=== PATIENT | female | born 1995 ===

== ENCOUNTER 2016-06-08 08:20 | Emergency (ER) | payer OTHER ==
--- NOTE | 2016-06-08 11:34 | ED CLINICAL REPORT ---
Clinical Report - Physicians/Mid Levels [facility] [address] [place] [address] 06/08/2016 8:21 Patient: PETE MEREDITH Time Seen: 09:11. Arrived- By private vehicle. Historian- patient. HISTORY OF PRESENT ILLNESS Chief Complaint: VOMITING. This started today and is still present. It was abrupt in onset and has been intermittent. No recent travel. She has had nausea and vomiting. The vomiting has occurred numerous times and has been blood-tinged. She has had loose stools. No bloody diarrhea. No black stools, bloody stools, abdominal pain or constipation. Has not recently been camping or on antibiotics. She has had contact with a sick spouse and child. The illness is described as severe. REVIEW OF SYSTEMS The patient has had a sore throat, chills and palpitations and experienced sweats. No fever, calf pain, chest pain, cough or difficulty breathing. No pedal edema, abdominal pain, constipation or urinary problems. All systems otherwise negative, except as recorded above. PAST HISTORY Problems: Anemia. Pyelonephritis. Medications: None. Allergies: No Known Drug Allergy. SOCIAL HISTORY Never smoker. No alcohol use or drug use. FAMILY HISTORY Her and child have similar symptoms. ADDITIONAL NOTES The nursing notes have been reviewed. PHYSICAL EXAM Vital Signs: 06/08/2016 08:28 BP: 130/90. HR: 115. RR: 18. O2 saturation: 99%. Temp: 98.7 F. Pain level now: 0/10. Have been reviewed. Appearance: Alert. Eyes: Pupils equal, round and reactive to light. ENT: Pharynx normal. Neck: Neck supple. CVS: Normal heart rate and rhythm. Heart sounds normal. Respiratory: No respiratory distress. Breath sounds normal. Abdomen: Soft and nontender. Abnormal bowel sounds: hyperactive. No organomegaly. No mass. Back: Normal inspection. Skin: Skin warm and dry. Normal skin color. Normal skin turgor. Extremities: Extremities exhibit normal ROM. No lower extremity edema. LABS, X-RAYS, AND EKG Laboratory Tests: UA-Culture if indicated: (KALYANI: 06/08/2016 10:15) ( [facility] 06/08/2016 10:29) Final results Test Result Flag Units (Reference) URINE COLOR YELLOW URINE APPEARANCE CLEAR URINE GLUCOSE NEGATIVE (NEGATIVE) URINE BILIRUBIN NEGATIVE (NEGATIVE) URINE KETONE 1+ (NEGATIVE) URINE SPECIFIC GRAVITY 1.010 (1.010-1.030) URINE PH 7.5 (5.0-8.0) URINE PROTEIN NEGATIVE (NEGATIVE) URINE UROBILINOGEN 0.2 EU/dL (0.2-1.0) URINE NITRITE NEGATIVE (NEGATIVE) URINE BLOOD TRACE-LYSED (NEGATIVE) URINE LEUK ESTERASE NEGATIVE (NEGATIVE) URINE RBC 0-1 rbc/hpf (0-1) URINE WBC NONE SEEN wbc/hpf (0-1) URINE EPITHELIAL CELLS 0-1 EPI/hpf (0-5) URINE BACTERIA NONE SEEN (NONE SEEN) URINE COMMENT CULT NOT INDICATED URINE CULTURES ARE SET-UP BASED ON THE FOLLOWING CRITERIA:POSITIVE NITRITEPOSITIVE LEUKOCYTE ESTERASEGREATER THAN 10 WHITE BLOOD CELLSMODERATE (2+) OR GREATER BACTERIA Urine: (KALYANI: 06/08/2016 10:15) ( [facility] 06/08/2016 10:22) Final results Test Result Flag Units (Reference) URINE NEGATIVE CBC w Diff: (KALYANI: 06/08/2016 08:40) ( [facility] 06/08/2016 09:09) Final results Test Result Flag Units (Reference) WHITE BLOOD COUNT 13.3 H K/uL (4.5-11.5) RED BLOOD COUNT 4.53 M/uL (4.00-5.20) HEMOGLOBIN 11.1 L gm/dL (12.0-16.0) HEMATOCRIT 35.0 L % (36.0-46.0) MEAN CELL VOLUME 77 L fL (80-100) MEAN CORPUSCULAR HGB 25 L pg (26-34) MEAN CORPUSCULAR HGB CONC 32 g/dL (31-37) RED CELL DISTRIBUTION WIDTH 17.3 H % (11.6-14.8) PLATELET COUNT 365 K/uL (150-400) NEUTROPHIL % 88.6 H % (50-75) LYMPH % 6.2 L % (25-40) MONO % 4.7 % (3-14) EOSINOPHIL % 0.3 % (0-4) BASOPHIL % 0.2 % (0-2) PT with INR: (KALYANI: 06/08/2016 08:40) ( MsgRcvd 06/08/2016 09:28) Final results Test Result Flag Units (Reference) INR 1.0 (0.8-1.2) Low Intensity Therapy: INR 1.5-2.0 PT range 18.5-23.1Mod.Intensity Therapy: INR 2.0-3.0 PT range 23.1-31.5High Intensity Therapy: INR 2.5-3.5 PT range 27.4-35.5High Intensity Therapy 2: INR 3.0-4.0 PT range 31.5-39.3 APTT 31 SECONDS (24-34) Urine Drug Screen: (KALYANI: 06/08/2016 10:15) ( WagRcvd 06/08/2016 10:36) Final results Test Result Flag Units (Reference) AMPHETAMINE/METHAMPHETAMINE NEGATIVE (NEGATIVE) BARBITURATE NEGATIVE (NEGATIVE) BENZODIAZEPINE NEGATIVE (NEGATIVE) CANNABINOID NEGATIVE (NEGATIVE) COCAINE NEGATIVE (NEGATIVE) ECSTASY NEGATIVE (NEGATIVE) METHADONE NEGATIVE (NEGATIVE) OPIATE NEGATIVE (NEGATIVE) The urine drug screen is a qualitative screening test fordrug overdose and abuse. All screen results should beconsidered as presumptive.Drugs screened for are as follows:BenzodiazepinesCocaineAmphetamines/MetamphetaminesTHC (Tetrahydrocannabinol)OpiatesBarbituratesEcstasyMethadonePositive results are unconfirmed. For confirmation, notifythe lab for the specimen to be sent to the reference lab.All confirmations must be performed by a differentmethodology.The ingestion of natural herbal and plant productscontaining Ephedra/Ephedra metabolites can produce in urineone or more substances capable of cross reacting withamphetamine/methamphetamine immunoassays. These testsprovide a preliminary result only. A more specificalternative chemical method must be used to obtain aconfirmed analytical result. CMP: (KALYANI: 06/08/2016 08:40) ( MsgRcvd 06/08/2016 09:36) Final results Test Result Flag Units (Reference) GLUCOSE 102 mg/dL (70-110) BUN 10 mg/dL (7-18) CREATININE 0.6 mg/dL (0.6-1.3) Estimated GFR >60 mL/min Estimated GFR- >60 mL/min Note: Persistent reduction over 3 months in eGFR<60 mL/min/1.73 m2 defines CKD. Patients with eGFR values>=60 mL/min/1.73 m2 may also have CKD if evidence ofpersistent proteinuria. Additional information may be foundat www.kidney.org. SODIUM 141 mmol/L (136-145) POTASSIUM 3.5 mmol/L (3.5-5.1) CHLORIDE 103 mmol/L (98-107) CARBON DIOXIDE 27 mmol/L (21-32) CALCIUM 8.7 mg/dL (8.5-10.1) TOTAL PROTEIN 8.1 g/dL (6.4-8.2) ALBUMIN 4.1 g/dL (3.3-5.0) BILIRUBIN, TOTAL 0.4 mg/dL (0.0-1.0) ALKALINE PHOSPHATASE 88 U/L (46-116) AST (SGOT) 17 U/L (15-37) ALT (SGPT) 18 U/L (12-78) LIPASE 236 U/L (73-393) AMYLASE 37 U/L (25-115) Culture, Strep Screen: (KALYANI: 06/08/2016 09:20) ( MsgRcvd 06/08/2016 09:39) Final results Test Result Flag Units (Reference) RAPID STREP SCREEN - THROAT DATE: 06/08/16 NEGATIVE SCREEN: RAPID STREP SCREEN NEGATIVE; CONFIRMATION TO FOLLOW . PROGRESS AND PROCEDURES Patient/family counseled. Old medical records reviewed. Disposition: Discharged. Condition: stable. CLINICAL IMPRESSION Acute gastroenteritis. INSTRUCTIONS Drink plenty of fluids. Warnings: Further evaluation is necessary. GENERAL WARNINGS: Return or contact your physician immediately if your condition worsens or changes unexpectedly, if not improving as expected, or if other problems arise. Prescription Medications: Zofran 4 mg: Take 1 orally every six hours as needed for nausea/vomiting. Dispense ten (10). No refills. Substitution is permissible. Understanding of the discharge instructions verbalized by patient. Follow-up with: [facility], , , [address] [place] [address], [facility], Follow up tomorrow. Call for an appointment. (Electronically signed by Dave Olmstead MD 06/08/2016 13:35)
--- NOTE | 2016-06-08 11:34 | ED ORDER SUMMARY ---
..... Patient: PETE MEREDITH OrderSheet [facility] VisitID: [id number] [place] [address] 20y, F Registration Date/Time: 06/08/2016 ORDER SHEET Weight: 67.1 kg (stated) Allergies: No Known Drug Allergy GENERAL ORDERS: CBC w Diff Urgent (09:00 06/08/2016 Garima MERCEDES) (Ack 9:00 LMuller) (9:01 LMuller) CMP Urgent (09:06/08/2016 Angela MERCEDES) (Ack 9:15 LMuller) (9:19 SReitz R.N.) UA-Culture if indicated Urgent (:06/08/2016 Angela MERCEDES) (Ack 9:15 LMuller) (10:16 RKsouravuga) Amylase Urgent (:06/08/2016 Angela MERCEDES) (Ack 9:15 LMuller) (9:19 SReitz R.N.) Lipase Urgent (09:06/08/2016 Angela MERCEDES) (Ack 9:15 LMuller) (9:19 SReitz R.N.) Urine Urgent (09:06/08/2016 Angela MERCEDES) (Ack 9:15 LMuller) (10:51 LMuller) PT with INR Urgent (09:06/08/2016 Angela MERCEDES) (Ack 9:15 LMuller) (9:19 SReitz R.N.) PTT Urgent (09:06/08/2016 Angela MERCEDES) (Ack 9:15 LMuller) (9:19 SReitz R.N.) Culture, Strep Screen Urgent (09:15 06/08/2016 Angela MERCEDES) (Ack 9:15 LMuller) (9:23 SReitz R.N.) Urine Drug Screen Urgent (09:37 06/08/2016 Angela MERCEDES) (Ack 9:46 SReitz R.N.) (10:16 RKaruga) MEDICATION ORDERS: IV FLUIDS: Zofran IV 4 mg (NOW) (08:59 06/08/2016 Garima MERCEDES) (Ack 9:09 SReitz R.N.) (Cancelled: Duplicate Order10:56 Milind Hinds) IV NS : initial bolus 1000 mL (1000 mL/hr), then none - (NOW) (09:00 06/08/2016 Garima MERCEDES) (Ack 9:09 Milind Bañuelos.N.) (Cancelled: Other9:18 Milind Bañuelos.Marixa) IV NS : initial bolus 500 mL (1000 mL/hr), then 125 mL/hr for 4h (NOW); Urgent (09:06/08/2016 Angela MERCEDES) (9:19 Milind R.NJake) Zofran IV 4 mg (NOW) (:13 06/08/2016 Angela MERCEDES) (9:19 Milind Hinds) ORDER SHEET NOTES: [Electronically signed by Jeanne Buchanan R.N. (12:31 06/08/2016)] [Electronically signed by Dave Olmstead MD (13:35 06/08/2016)] [Electronically locked/signed by Jeanne Buchanan R.N. (12:31 06/08/2016)]
--- NOTE | 2016-06-08 11:34 | ED CLINICAL REPORT ---
Clinical Report - Physicians/Mid Levels [facility] [address] [place] [address] 06/08/2016 8:21 Patient: PETE MEREDITH Time Seen: 09:11. Arrived- By private vehicle. Historian- patient. HISTORY OF PRESENT ILLNESS Chief Complaint: VOMITING. This started today and is still present. It was abrupt in onset and has been intermittent. No recent travel. She has had nausea and vomiting. The vomiting has occurred numerous times and has been blood-tinged. She has had loose stools. No bloody diarrhea. No black stools, bloody stools, abdominal pain or constipation. Has not recently been camping or on antibiotics. She has had contact with a sick spouse and child. The illness is described as severe. REVIEW OF SYSTEMS The patient has had a sore throat, chills and palpitations and experienced sweats. No fever, calf pain, chest pain, cough or difficulty breathing. No pedal edema, abdominal pain, constipation or urinary problems. All systems otherwise negative, except as recorded above. PAST HISTORY Problems: Anemia. Pyelonephritis. Medications: None. Allergies: No Known Drug Allergy. SOCIAL HISTORY Never smoker. No alcohol use or drug use. FAMILY HISTORY Her and child have similar symptoms. ADDITIONAL NOTES The nursing notes have been reviewed. PHYSICAL EXAM Vital Signs: 06/08/2016 08:28 BP: 130/90. HR: 115. RR: 18. O2 saturation: 99%. Temp: 98.7 F. Pain level now: 0/10. Have been reviewed. Appearance: Alert. Eyes: Pupils equal, round and reactive to light. ENT: Pharynx normal. Neck: Neck supple. CVS: Normal heart rate and rhythm. Heart sounds normal. Respiratory: No respiratory distress. Breath sounds normal. Abdomen: Soft and nontender. Abnormal bowel sounds: hyperactive. No organomegaly. No mass. Back: Normal inspection. Skin: Skin warm and dry. Normal skin color. Normal skin turgor. Extremities: Extremities exhibit normal ROM. No lower extremity edema. LABS, X-RAYS, AND EKG Laboratory Tests: UA-Culture if indicated: (KALYANI: 06/08/2016 10:15) ( [facility] 06/08/2016 10:29) Final results Test Result Flag Units (Reference) URINE COLOR YELLOW URINE APPEARANCE CLEAR URINE GLUCOSE NEGATIVE (NEGATIVE) URINE BILIRUBIN NEGATIVE (NEGATIVE) URINE KETONE 1+ (NEGATIVE) URINE SPECIFIC GRAVITY 1.010 (1.010-1.030) URINE PH 7.5 (5.0-8.0) URINE PROTEIN NEGATIVE (NEGATIVE) URINE UROBILINOGEN 0.2 EU/dL (0.2-1.0) URINE NITRITE NEGATIVE (NEGATIVE) URINE BLOOD TRACE-LYSED (NEGATIVE) URINE LEUK ESTERASE NEGATIVE (NEGATIVE) URINE RBC 0-1 rbc/hpf (0-1) URINE WBC NONE SEEN wbc/hpf (0-1) URINE EPITHELIAL CELLS 0-1 EPI/hpf (0-5) URINE BACTERIA NONE SEEN (NONE SEEN) URINE COMMENT CULT NOT INDICATED URINE CULTURES ARE SET-UP BASED ON THE FOLLOWING CRITERIA:POSITIVE NITRITEPOSITIVE LEUKOCYTE ESTERASEGREATER THAN 10 WHITE BLOOD CELLSMODERATE (2+) OR GREATER BACTERIA Urine: (KALYANI: 06/08/2016 10:15) ( [facility] 06/08/2016 10:22) Final results Test Result Flag Units (Reference) URINE NEGATIVE CBC w Diff: (KALYANI: 06/08/2016 08:40) ( [facility] 06/08/2016 09:09) Final results Test Result Flag Units (Reference) WHITE BLOOD COUNT 13.3 H K/uL (4.5-11.5) RED BLOOD COUNT 4.53 M/uL (4.00-5.20) HEMOGLOBIN 11.1 L gm/dL (12.0-16.0) HEMATOCRIT 35.0 L % (36.0-46.0) MEAN CELL VOLUME 77 L fL (80-100) MEAN CORPUSCULAR HGB 25 L pg (26-34) MEAN CORPUSCULAR HGB CONC 32 g/dL (31-37) RED CELL DISTRIBUTION WIDTH 17.3 H % (11.6-14.8) PLATELET COUNT 365 K/uL (150-400) NEUTROPHIL % 88.6 H % (50-75) LYMPH % 6.2 L % (25-40) MONO % 4.7 % (3-14) EOSINOPHIL % 0.3 % (0-4) BASOPHIL % 0.2 % (0-2) PT with INR: (KALYANI: 06/08/2016 08:40) ( MsgRcvd 06/08/2016 09:28) Final results Test Result Flag Units (Reference) INR 1.0 (0.8-1.2) Low Intensity Therapy: INR 1.5-2.0 PT range 18.5-23.1Mod.Intensity Therapy: INR 2.0-3.0 PT range 23.1-31.5High Intensity Therapy: INR 2.5-3.5 PT range 27.4-35.5High Intensity Therapy 2: INR 3.0-4.0 PT range 31.5-39.3 APTT 31 SECONDS (24-34) Urine Drug Screen: (KALYANI: 06/08/2016 10:15) ( AzgRcvd 06/08/2016 10:36) Final results Test Result Flag Units (Reference) AMPHETAMINE/METHAMPHETAMINE NEGATIVE (NEGATIVE) BARBITURATE NEGATIVE (NEGATIVE) BENZODIAZEPINE NEGATIVE (NEGATIVE) CANNABINOID NEGATIVE (NEGATIVE) COCAINE NEGATIVE (NEGATIVE) ECSTASY NEGATIVE (NEGATIVE) METHADONE NEGATIVE (NEGATIVE) OPIATE NEGATIVE (NEGATIVE) The urine drug screen is a qualitative screening test fordrug overdose and abuse. All screen results should beconsidered as presumptive.Drugs screened for are as follows:BenzodiazepinesCocaineAmphetamines/MetamphetaminesTHC (Tetrahydrocannabinol)OpiatesBarbituratesEcstasyMethadonePositive results are unconfirmed. For confirmation, notifythe lab for the specimen to be sent to the reference lab.All confirmations must be performed by a differentmethodology.The ingestion of natural herbal and plant productscontaining Ephedra/Ephedra metabolites can produce in urineone or more substances capable of cross reacting withamphetamine/methamphetamine immunoassays. These testsprovide a preliminary result only. A more specificalternative chemical method must be used to obtain aconfirmed analytical result. CMP: (KALYANI: 06/08/2016 08:40) ( MsgRcvd 06/08/2016 09:36) Final results Test Result Flag Units (Reference) GLUCOSE 102 mg/dL (70-110) BUN 10 mg/dL (7-18) CREATININE 0.6 mg/dL (0.6-1.3) Estimated GFR >60 mL/min Estimated GFR- >60 mL/min Note: Persistent reduction over 3 months in eGFR<60 mL/min/1.73 m2 defines CKD. Patients with eGFR values>=60 mL/min/1.73 m2 may also have CKD if evidence ofpersistent proteinuria. Additional information may be foundat www.kidney.org. SODIUM 141 mmol/L (136-145) POTASSIUM 3.5 mmol/L (3.5-5.1) CHLORIDE 103 mmol/L (98-107) CARBON DIOXIDE 27 mmol/L (21-32) CALCIUM 8.7 mg/dL (8.5-10.1) TOTAL PROTEIN 8.1 g/dL (6.4-8.2) ALBUMIN 4.1 g/dL (3.3-5.0) BILIRUBIN, TOTAL 0.4 mg/dL (0.0-1.0) ALKALINE PHOSPHATASE 88 U/L (46-116) AST (SGOT) 17 U/L (15-37) ALT (SGPT) 18 U/L (12-78) LIPASE 236 U/L (73-393) AMYLASE 37 U/L (25-115) Culture, Strep Screen: (KALYANI: 06/08/2016 09:20) ( MsgRcvd 06/08/2016 09:39) Final results Test Result Flag Units (Reference) RAPID STREP SCREEN - THROAT DATE: 06/08/16 NEGATIVE SCREEN: RAPID STREP SCREEN NEGATIVE; CONFIRMATION TO FOLLOW . PROGRESS AND PROCEDURES Patient/family counseled. Old medical records reviewed. Disposition: Discharged. Condition: stable. CLINICAL IMPRESSION Acute gastroenteritis. INSTRUCTIONS Drink plenty of fluids. Warnings: Further evaluation is necessary. GENERAL WARNINGS: Return or contact your physician immediately if your condition worsens or changes unexpectedly, if not improving as expected, or if other problems arise. Prescription Medications: Zofran 4 mg: Take 1 orally every six hours as needed for nausea/vomiting. Dispense ten (10). No refills. Substitution is permissible. Understanding of the discharge instructions verbalized by patient. Follow-up with: [facility], , , [address] [place] [address], [facility], Follow up tomorrow. Call for an appointment. (Electronically signed by Dave Olmstead MD 06/08/2016 13:35)
--- NOTE | 2016-06-08 11:34 | ED ORDER SUMMARY ---
..... Patient: PETE MEREDITH OrderSheet [facility] VisitID: [id number] [place] [address] 20y, F Registration Date/Time: 06/08/2016 ORDER SHEET Weight: 67.1 kg (stated) Allergies: No Known Drug Allergy GENERAL ORDERS: CBC w Diff Urgent (09:00 06/08/2016 Garima MERCEDES) (Ack 9:00 LMuller) (9:01 LMuller) CMP Urgent (09:06/08/2016 Angela MERECDES) (Ack 9:15 LMuller) (9:19 SReitz R.N.) UA-Culture if indicated Urgent (:06/08/2016 Angela MERCEDES) (Ack 9:15 LMuller) (10:16 RKsouravuga) Amylase Urgent (:06/08/2016 Angela MERCEDES) (Ack 9:15 LMuller) (9:19 SReitz R.N.) Lipase Urgent (09:06/08/2016 Angela MERCEDES) (Ack 9:15 LMuller) (9:19 SReitz R.N.) Urine Urgent (09:06/08/2016 Angela MERCEDES) (Ack 9:15 LMuller) (10:51 LMuller) PT with INR Urgent (09:06/08/2016 Angela MERCEDES) (Ack 9:15 LMuller) (9:19 SReitz R.N.) PTT Urgent (09:06/08/2016 Angela MERCEDES) (Ack 9:15 LMuller) (9:19 SReitz R.N.) Culture, Strep Screen Urgent (09:15 06/08/2016 Angela MERCEDES) (Ack 9:15 LMuller) (9:23 SReitz R.N.) Urine Drug Screen Urgent (09:37 06/08/2016 Angela MERCEDES) (Ack 9:46 SReitz R.N.) (10:16 RKaruga) MEDICATION ORDERS: IV FLUIDS: Zofran IV 4 mg (NOW) (08:59 06/08/2016 Garima MERCEDES) (Ack 9:09 SReitz R.N.) (Cancelled: Duplicate Order10:56 Milind Hinds) IV NS : initial bolus 1000 mL (1000 mL/hr), then none - (NOW) (09:00 06/08/2016 Garima MERCEDES) (Ack 9:09 Milind Bañuelos.N.) (Cancelled: Other9:18 Milind Bañuelos.Marixa) IV NS : initial bolus 500 mL (1000 mL/hr), then 125 mL/hr for 4h (NOW); Urgent (09:06/08/2016 Angela MERCEDES) (9:19 Milind R.NJake) Zofran IV 4 mg (NOW) (:13 06/08/2016 Angela MERCEDES) (9:19 Milind Hinds) ORDER SHEET NOTES: [Electronically signed by Jeanne Buchanan R.N. (12:31 06/08/2016)] [Electronically signed by Dave Olmstead MD (13:35 06/08/2016)] [Electronically locked/signed by Jeanne Buchanan R.N. (12:31 06/08/2016)]
--- NOTE | 2016-06-08 11:34 | ED NURSING NOTES ---
Clinical Report - Nurses [facility] [address] [place] [address] 06/08/2016 8:21 Patient: PETE MEREDITH TRIAGE Triage time 08:28. Acuity: LEVEL 3. Chief Complaint: ABDOMINAL PAIN, VOMITING and DIARRHEA and VOMITING BLOOD. Alert. SEPSIS SCREEN: Sepsis Screen. Negative (no infection suspected/documented). ALEXANDRA COMA SCORE: Alexandra Coma Scale: 15- eyes open spontaneously (4); best verbal response- oriented x 4 (5); best motor response- obeys commands (6). --08:34 Jeanne Buchanan R.N. 08:28 06/08/16. BP: 130/90. HR: 115. RR: 18. O2 saturation: 99%. Temp: 98.7 F. Pain level now: 0/10. Pain level upon arrival: 0/10. Pain level at maximum: 7/10. Describes the quality as aching. It is worsened by movement and lying flat. It has been waxing/waning. --08:34 Jeanne Buchanan R.N. Weight: 67.1 kg stated. Height/Length: 64 inches Per Patient. BMI: 25.4. --08:35 Jeanne Buchanan R.N. Medications None. --08:34 Jeanne Buchanan R.N. Allergies No Known Drug Allergy. --08:34 Jeanne Buchanan R.N. History Arrived by private vehicle. Historian: patient. Unaccompanied. Primary physician (SHAYAN in [facility]). This started today. Onset. (2 hours ago). 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 PAST MEDICAL HX: Immunizations: up-to-date. Last normal menstrual period- . SOCIAL HX: Never smoker. No alcohol use or drug use. No recent travel. No infectious disease exposure. No known contact with a sick individual. ABUSE ASSESSMENT: Abuse assessment: The patient was asked "Do you feel safe in your home?" and "Has anyone hurt you or threatened to hurt you?". No report of abuse. SELF HARM ASSESSMENT: A self harm assessment was performed. The patient answered "no" to the question "Do you have thoughts of harming or killing yourself?" and "Have you recently had thoughts about harming or killing others?". NUTRITIONAL RISK ASSESSMENT: The nutritional risk assessment revealed no deficiencies. FUNCTIONAL ASSESSMENT: Functional assessment: no impairments noted. LEARNING NEEDS ASSESSMENT: The learning needs assessment revealed no barriers. --08:34 Jeanne Buchanan R.N. PROBLEMS: Pyelonephritis. --08:34 Jeanne Buchanan R.N. Interventions ID band on patient. Ambulatory. --08:34 Jeanne Buchanan R.N. PHYSICAL ASSESSMENT Ambulatory to room. GENERAL / NEURO / PSYCH: Alert. Appears in no acute distress. HEENT: Mucous membranes are pink. RESPIRATORY: Respirations not labored. CVS: Capillary refill less than 2 seconds. GI / : Abdomen soft and nontender. SKIN: Skin is warm and dry. --08:35 Jeanne Buchanan R.N. ( pt. states she had a few episodes of blood in her vomit, "tablespoon of blood." It appeared brown and bright red.). --08:37 Jeanne Buchanan R.N. NURSING PROGRESS NOTES Patient gowned. Head of bed elevated. Two patient identifiers checked. Call light placed in reach. Side rails up x 2. Bed placed in lowest position. Brakes of bed on. Patient ready for evaluation- chart flagged. --08:35 Jeanne Buchanan R.N. 08:43 06/08/2016 Site #1 started via IV in the right antecubital space with an 20g angiocath, with aseptic technique and good blood return; one attempt. Blood drawn: rainbow set. Labeled in the presence of the patient and sent to the lab. Saline lock flushed with 10 mL saline. --08:43 Jeanne Buchanan R.N. 09:17 06/08/2016 Started bag #1 1000 mL IV Fluids IV NS (Saline); at 1000 mL/hr over 30 minute(s) via site #1 via IV pump. Allergies verified and confirmed 5 rights. IV patency established. IV site checked: no pain, redness, or swelling. IV flushed thoroughly pre- and post-medication administration. --09:19 Jeanne Buchanan R.N. 09:18 06/08/2016 Zofran (Ondansetron HCl) IVP 4 mg given over 1 minute(s) via site #1. Allergies verified and confirmed 5 rights. IV patency established. IV site checked: no pain, redness, or swelling. IV flushed thoroughly pre- and post-medication administration. --09:19 Jeanne Buchanan R.N. Patient ID band checked for patient name, birthdate and medical record number: patient confirmed. Throat swab obtained for rapid strep; labeled in the presence of the patient and sent to lab. --09:23 Jeanne Buchanan R.N. 09:23 06/08/2016 Zofran IVP Response: no adverse reaction pain is improving. Symptoms have improved the patient feels better. --09:23 Jeanne Buchanan R.N. ( pt. notified to leave urine sample. Unable to at this time.). --09:48 Jeanne Buchanan R.N. 09:54 06/08/2016 IV Fluids IV NS Continued: at the rate of 125 mL/hr. 500 mL remaining bag #1. IV patency established. IV site checked: no pain, redness, or swelling. IV flushed thoroughly. --09:54 Jeanne Buchanan R.N. ( assisted pt to bathroom for urine sample.). --09:55 Jeanne Buchanan R.N. Patient ID band checked for patient name and birthdate: patient confirmed urine collected with return of yellow-colored clear urine; odor is normal; sample sent to lab for urinalysis and culture. Specimen labeled in the presence of the patient. --10:18 Josselin Alvarado 10:58 06/08/16. BP: 109/63. HR: 80. RR: 16. O2 saturation: 100%. --10:58 Jeanne Buchanan R.N. DISPOSITION / DISCHARGE 11:45 06/08/2016 Site #1 removed upon discharge. Catheter intact. Manual pressure and bandaid applied. --12:25 Jeanne Buchanan R.N. ( provider aware of d/c v/s. No new orders received.). --12:28 Jeanne Buchanan R.N. 11:45 06/08/16. BP: 118/69. HR: 115. RR: 16. O2 saturation: 100%. Temp: 98.6 F. Hernández-Shah pain scale: 10. --12:28 Jeanne Buchanan R.N. 11:45. Departure time: 1145. Condition at departure: stable. No learning barriers present. Discharge instructions provided and reviewed with the patient. Reviewed medication(s) side effects, precautions, dosing and course information. Prescription(s) given to the patient. Reviewed referral to family practice for followup. Patient verbalized understanding. Written instructions provided in Sammarinese. The patient was discharged home and unaccompanied at time of discharge. She left the Emergency Department ambulatory and via private vehicle. Patient driving. Medication list reviewed and validated. --12:29 Jeanne Buchanan R.N. Locked/Released at 06/08/2016 12:31 by Jeanne Buchanan R.N.
--- NOTE | 2016-06-08 13:36 | ED DISCHARGE INSTRUCTIONS ---
Patient: PETE MEREDITH General Instructions [facility] VisitID: [id number] [place] [address] 20y, F Registration Date/Time: 06/08/2016 Acute gastroenteritis. INSTRUCTIONS Drink plenty of fluids. Warnings: Further evaluation is necessary. GENERAL WARNINGS: Return or contact your physician immediately if your condition worsens or changes unexpectedly, if not improving as expected, or if other problems arise. Prescription Medications: Zofran 4 mg: Take 1 orally every six hours as needed for nausea/vomiting. Dispense ten (10). No refills. Substitution is permissible. Understanding of the discharge instructions verbalized by patient. Follow-up with: [facility] , , [address], , Madhav, Follow up tomorrow. Call for an appointment. ADDITIONAL INFORMATION Viral Gastroenteritis (6Yr-Adult) Gastroenteritis is another name for thestomach flu.It is most often caused by a virus that affects the stomach and intestinal tract. Symptoms include stomach cramping and fever, vomiting and/or diarrhea, and can last from 2 to 7 days. The danger from repeated vomiting or diarrhea is dehydration. This is the loss of too much water and minerals from the body. When this occurs, body fluids must be replaced. Antibiotics are not effective for this illness, but simple home treatment will be helpful. Home Care If symptoms are severe, rest at home for the next 24 hours. Avoid tobacco, caffeine, and alcohol use, which can worsen symptoms. Acetaminophen (Tylenol) or ibuprofen (Motrin, Advil) may be usedfor fever or pain unless another medication was prescribed. NOTE: If you have chronic liver or kidney disease or ever had a stomach ulcer or GI bleeding, talk with your doctor before using these medicines. Aspirin should never be used in anyone under 18 years of age who is ill with a fever. It may cause severe liver damage. If medicines for diarrhea or vomiting were prescribed, be sure they are takenonly as directed. If vomiting, drink small amounts of clear fluids (such as water, sports drinks, clear sodas) at frequent intervals to prevent dehydration. Start with 1 to 2 tablespoons every 10 minutes. Once vomiting stops, follow these guidelines: During The First 12 To 24 Hours follow the diet below: Beverages: Sport drinks like Gatorade, soft drinks without caffeine; rafi herbert, mineral water (plain or flavored), decaffeinated tea and coffee. Soups: Clear broth, consomm and bouillon Desserts: Plain gelatin (Jell-O), Popsicles and fruit juice bars. During The Next 24 Hours you may add the following to the above: Hot cereal, plain toast, bread, rolls, crackers Plain noodles, rice, mashed potatoes, chicken noodle or rice soup Unsweetened canned fruit (avoid pineapple), bananas Limit fat intake to less than 15 grams per day by avoiding margarine, butter, oils, mayonnaise, sauces, gravies, fried foods, peanut butter, meat, poultry, and fish. Limit fiber; avoid raw or cooked vegetables, fresh fruits (except bananas), and bran cereals. Limit caffeine and chocolate. Do not use spices or seasonings except salt. During The Next 24 Hours The patient can gradually resume a normal diet as symptoms lessen. Preventing Spread Hand washing with soap and water is the best way to prevent the spread of viruses. Caregivers should wash their hands before andafter touching the sick person. The sick person, as well as everyone in the family,should wash their hands after using the toilet and before meals. Clean the toilet after each use. People with diarrhea should not prepare food for others. If you are preparing your own foods, wash your hands before and after. Follow Up with your doctor as advised. Call your doctor if you are not improving over the next 2 to 3 days. If a stool (diarrhea) sample was taken, you may call in 2 days (or as directed) for the results. Get Prompt Medical Attention if any of the following occur: Increasing abdominal pain Continued vomiting (unable to keep liquids down) Frequent diarrhea (more than 5 times a day) Blood in vomit or stool (black or red color) Dark urine, reduced urine output, or extreme thirst Weakness, dizziness, fainting Drowsiness, confusion, stiff neck, or seizure Fever of 100.4F (38C) oral or higher, not better with fever medication New rash Ondansetron Oral disintegrating tablet What is this medicine? ONDANSETRON (on YOHAN se millie) is used to treat nausea and vomiting caused by chemotherapy. It is also used to prevent or treat nausea and vomiting after surgery. How should I use this medicine? These tablets are made to dissolve in the mouth. Do not try to push the tablet through the foil backing. With dry hands, peel away the foil backing and gently remove the tablet. Place the tablet in the mouth and allow it to dissolve, then swallow. While you may take these tablets with water, it is not necessary to do so. Talk to your senior instructional designer regarding the use of this medicine in children. Special care may be needed. What side effects may I notice from receiving this medicine? Side effects that you should report to your doctor or health district manager primary care sales as soon as possible: allergic reactions like skin rash, itching or hives, swelling of the face, lips, or tongue breathing problems dizziness fast or irregular heartbeat feeling faint or lightheaded, falls fever and chills swelling of the hands and feet tightness in the chest Side effects that usually do not require medical attention (report to your doctor or health district manager primary care sales if they continue or are bothersome): constipation or diarrhea headache What may interact with this medicine? Do not take this medicine with any of the following medications: -apomorphine -cisapride -dofetilide -dronedarone -pimozide -thioridazine -ziprasidone This medicine may also interact with the following medications: -carbamazepine -phenytoin -rifampicin -tramadol -other medicines that prolong the QT interval (cause an abnormal heart rhythm) What if I miss a dose? If you miss a dose, take it as soon as you can. If it is almost time for your next dose, take only that dose. Do not take double or extra doses. Where should I keep my medicine? Keep out of the reach of children. Store between 2 and 30 degrees C (36 and 86 degrees F). Throw away any unused medicine after the expiration date. What should I tell my health care provider before I take this medicine? They need to know if you have any of these conditions: heart disease history of irregular heartbeat liver disease low levels of magnesium or potassium in the blood an unusual or allergic reaction to ondansetron, granisetron, other medicines, foods, dyes, or preservatives or trying to get breast-feeding What should I watch for while using this medicine? Check with your doctor or health district manager primary care sales as soon as you can if you have any sign of an allergic reaction. You have been given the following additional information: Gastroenteritis, Viral (6Y-Adult) Ondansetron Oral disintegrating tablet (Electronically signed by Dave Olmstead MD 06/08/2016 13:35)
--- NOTE | 2016-06-08 13:36 | ED MAR SUMMARY ---
..... Medication Administration Record [facility] [address] [place] [address] Patient: PETE MEREDITH Visit ID: [id number] 20y, F Weight: 67.1 kg Height/Length: 64 in BMI: 25.4 ALLERGIES: No Known Drug Allergy Start 09:17 06/08/2016 Jeanne Buchanan R.N., Continued Upon Disposition 09:54 06/08/2016 Jeanne Buchanan R.N. Medication Administered: IV NS (SALINE), Dose: IV Fluids over 30 minute(s), Rate: 1000 mL/hr, Dispensed: 1000 mL bag, Site: #1 right AC. Medication Ordered: IV NS : initial bolus 500 mL (1000 mL/hr), then 125 mL/hr for 4h (NOW); Urgent. Given 09:18 06/08/2016 Jeanne Buchanan R.N. Medication Administered: ZOFRAN [IVP] (ONDANSETRON HCL), Dose: 4 mg IVP over 1 minute(s), Site: #1 right AC. Medication Ordered: Zofran IV 4 mg (NOW).
--- NOTE | 2016-06-08 13:36 | ED MED RECONCILIATION SUMMARY ---
Patient: PETE MEREDITH Medication Reconciliation Report [facility] VisitID: [id number] [place] [address] 20y, F Registration Date/Time: 06/08/2016 Weight: 67.1 kg Height/Length: 64 in. BMI: 25.4 ALLERGIES: No Known Drug Allergy The patient's Home Medications are listed below: NONE. The source(s) of the original Home Medication information: Not obtained. The following Medications were given to the patient in the Emergency Department: IV NS IV Fluids bolus 0, then 1000 mL/hr, administered: 06/08/2016 9:17:00 AM Zofran [IVP] IVP 4 mg, administered: 06/08/2016 9:18:00 AM The following Medications were prescribed to the patient: Zofran 4 mg: Take 1 orally every six hours as needed for nausea/vomiting. Dispense ten (10). No refills. Substitution is permissible. -- Dave Olmstead MD
--- NOTE | 2016-06-08 13:36 | ED MAR SUMMARY ---
..... Medication Administration Record [facility] [address] [place] [address] Patient: PETE MEREDITH Visit ID: [id number] 20y, F Weight: 67.1 kg Height/Length: 64 in BMI: 25.4 ALLERGIES: No Known Drug Allergy Start 09:17 06/08/2016 Jeanne Buchanan R.N., Continued Upon Disposition 09:54 06/08/2016 Jeanne Buchanan R.N. Medication Administered: IV NS (SALINE), Dose: IV Fluids over 30 minute(s), Rate: 1000 mL/hr, Dispensed: 1000 mL bag, Site: #1 right AC. Medication Ordered: IV NS : initial bolus 500 mL (1000 mL/hr), then 125 mL/hr for 4h (NOW); Urgent. Given 09:18 06/08/2016 Jeanne Buchanan R.N. Medication Administered: ZOFRAN [IVP] (ONDANSETRON HCL), Dose: 4 mg IVP over 1 minute(s), Site: #1 right AC. Medication Ordered: Zofran IV 4 mg (NOW).
--- NOTE | 2016-06-08 13:36 | ED DISCHARGE INSTRUCTIONS ---
Patient: PETE MEREDITH General Instructions [facility] VisitID: [id number] [place] [address] 20y, F Registration Date/Time: 06/08/2016 Acute gastroenteritis. INSTRUCTIONS Drink plenty of fluids. Warnings: Further evaluation is necessary. GENERAL WARNINGS: Return or contact your physician immediately if your condition worsens or changes unexpectedly, if not improving as expected, or if other problems arise. Prescription Medications: Zofran 4 mg: Take 1 orally every six hours as needed for nausea/vomiting. Dispense ten (10). No refills. Substitution is permissible. Understanding of the discharge instructions verbalized by patient. Follow-up with: [facility] , , [address], , Madhav, Follow up tomorrow. Call for an appointment. ADDITIONAL INFORMATION Viral Gastroenteritis (6Yr-Adult) Gastroenteritis is another name for thestomach flu.It is most often caused by a virus that affects the stomach and intestinal tract. Symptoms include stomach cramping and fever, vomiting and/or diarrhea, and can last from 2 to 7 days. The danger from repeated vomiting or diarrhea is dehydration. This is the loss of too much water and minerals from the body. When this occurs, body fluids must be replaced. Antibiotics are not effective for this illness, but simple home treatment will be helpful. Home Care If symptoms are severe, rest at home for the next 24 hours. Avoid tobacco, caffeine, and alcohol use, which can worsen symptoms. Acetaminophen (Tylenol) or ibuprofen (Motrin, Advil) may be usedfor fever or pain unless another medication was prescribed. NOTE: If you have chronic liver or kidney disease or ever had a stomach ulcer or GI bleeding, talk with your doctor before using these medicines. Aspirin should never be used in anyone under 18 years of age who is ill with a fever. It may cause severe liver damage. If medicines for diarrhea or vomiting were prescribed, be sure they are takenonly as directed. If vomiting, drink small amounts of clear fluids (such as water, sports drinks, clear sodas) at frequent intervals to prevent dehydration. Start with 1 to 2 tablespoons every 10 minutes. Once vomiting stops, follow these guidelines: During The First 12 To 24 Hours follow the diet below: Beverages: Sport drinks like Gatorade, soft drinks without caffeine; rafi herbert, mineral water (plain or flavored), decaffeinated tea and coffee. Soups: Clear broth, consomm and bouillon Desserts: Plain gelatin (Jell-O), Popsicles and fruit juice bars. During The Next 24 Hours you may add the following to the above: Hot cereal, plain toast, bread, rolls, crackers Plain noodles, rice, mashed potatoes, chicken noodle or rice soup Unsweetened canned fruit (avoid pineapple), bananas Limit fat intake to less than 15 grams per day by avoiding margarine, butter, oils, mayonnaise, sauces, gravies, fried foods, peanut butter, meat, poultry, and fish. Limit fiber; avoid raw or cooked vegetables, fresh fruits (except bananas), and bran cereals. Limit caffeine and chocolate. Do not use spices or seasonings except salt. During The Next 24 Hours The patient can gradually resume a normal diet as symptoms lessen. Preventing Spread Hand washing with soap and water is the best way to prevent the spread of viruses. Caregivers should wash their hands before andafter touching the sick person. The sick person, as well as everyone in the family,should wash their hands after using the toilet and before meals. Clean the toilet after each use. People with diarrhea should not prepare food for others. If you are preparing your own foods, wash your hands before and after. Follow Up with your doctor as advised. Call your doctor if you are not improving over the next 2 to 3 days. If a stool (diarrhea) sample was taken, you may call in 2 days (or as directed) for the results. Get Prompt Medical Attention if any of the following occur: Increasing abdominal pain Continued vomiting (unable to keep liquids down) Frequent diarrhea (more than 5 times a day) Blood in vomit or stool (black or red color) Dark urine, reduced urine output, or extreme thirst Weakness, dizziness, fainting Drowsiness, confusion, stiff neck, or seizure Fever of 100.4F (38C) oral or higher, not better with fever medication New rash Ondansetron Oral disintegrating tablet What is this medicine? ONDANSETRON (on YOHAN se millie) is used to treat nausea and vomiting caused by chemotherapy. It is also used to prevent or treat nausea and vomiting after surgery. How should I use this medicine? These tablets are made to dissolve in the mouth. Do not try to push the tablet through the foil backing. With dry hands, peel away the foil backing and gently remove the tablet. Place the tablet in the mouth and allow it to dissolve, then swallow. While you may take these tablets with water, it is not necessary to do so. Talk to your medical technologist hematology regarding the use of this medicine in children. Special care may be needed. What side effects may I notice from receiving this medicine? Side effects that you should report to your doctor or health career technical counselor as soon as possible: allergic reactions like skin rash, itching or hives, swelling of the face, lips, or tongue breathing problems dizziness fast or irregular heartbeat feeling faint or lightheaded, falls fever and chills swelling of the hands and feet tightness in the chest Side effects that usually do not require medical attention (report to your doctor or health career technical counselor if they continue or are bothersome): constipation or diarrhea headache What may interact with this medicine? Do not take this medicine with any of the following medications: -apomorphine -cisapride -dofetilide -dronedarone -pimozide -thioridazine -ziprasidone This medicine may also interact with the following medications: -carbamazepine -phenytoin -rifampicin -tramadol -other medicines that prolong the QT interval (cause an abnormal heart rhythm) What if I miss a dose? If you miss a dose, take it as soon as you can. If it is almost time for your next dose, take only that dose. Do not take double or extra doses. Where should I keep my medicine? Keep out of the reach of children. Store between 2 and 30 degrees C (36 and 86 degrees F). Throw away any unused medicine after the expiration date. What should I tell my health care provider before I take this medicine? They need to know if you have any of these conditions: heart disease history of irregular heartbeat liver disease low levels of magnesium or potassium in the blood an unusual or allergic reaction to ondansetron, granisetron, other medicines, foods, dyes, or preservatives or trying to get breast-feeding What should I watch for while using this medicine? Check with your doctor or health career technical counselor as soon as you can if you have any sign of an allergic reaction. You have been given the following additional information: Gastroenteritis, Viral (6Y-Adult) Ondansetron Oral disintegrating tablet (Electronically signed by Dave Olmstead MD 06/08/2016 13:35)
--- NOTE | 2016-06-08 13:36 | ED MED RECONCILIATION SUMMARY ---
Patient: PETE MEREDITH Medication Reconciliation Report [facility] VisitID: [id number] [place] [address] 20y, F Registration Date/Time: 06/08/2016 Weight: 67.1 kg Height/Length: 64 in. BMI: 25.4 ALLERGIES: No Known Drug Allergy The patient's Home Medications are listed below: NONE. The source(s) of the original Home Medication information: Not obtained. The following Medications were given to the patient in the Emergency Department: IV NS IV Fluids bolus 0, then 1000 mL/hr, administered: 06/08/2016 9:17:00 AM Zofran [IVP] IVP 4 mg, administered: 06/08/2016 9:18:00 AM The following Medications were prescribed to the patient: Zofran 4 mg: Take 1 orally every six hours as needed for nausea/vomiting. Dispense ten (10). No refills. Substitution is permissible. -- Dave Olmstead MD
== END 2016-06-08 11:45 | disposition home or self-care (01) ==
LOC: ED SRH 08:20
DX: K52.9 Noninfective gastroenteritis and colitis, unspecified (principal)
CPT/HCPCS: 90004; 90100; 90154; 90159; 92235; 92530; 92760; 92761; 92762; 92763; 92764; 92765; 92766; 92767; 93070; 94001; 94060; 95059

== ENCOUNTER 2016-07-15 11:07 | Outpatient (CLI) | payer OTHER ==
--- NOTE | 2016-07-15 11:47 | DIAGNOSTIC IMAGING REPORT ---
PROCEDURE: US OB 1ST TRIMESTER W/TRANSVAG INDICATION: SIZE AND DATES TECHNIQUE: [place]idd scale, color, and spectral Doppler transabdominal and endovaginal sonographic images of the first trimester gravid uterus were obtained. COMPARISON: None. FINDINGS: TRANSABDOMINAL SCANS: Retroverted uterus with a single intrauterine gestational sac. Normal maternal kidneys. TRANSVAGINAL SCANS: Yolk sac present. [place]-rump length 5.4 mm, 6 weeks 2 days. Heart rate 119 bpm. PRETTY 03/08/2017. Normal closed cervix measures 3.8 cm. 2.3 cm right ovarian corpus luteum cyst. Left ovary is unremarkable. IMPRESSION: 1. Single live intrauterine 6 weeks 2 days 2. PRETTY 03/08/2017.
--- NOTE | 2016-07-15 11:47 | DIAGNOSTIC IMAGING REPORT ---
PROCEDURE: US OB 1ST TRIMESTER W/TRANSVAG INDICATION: SIZE AND DATES TECHNIQUE: [place]idd scale, color, and spectral Doppler transabdominal and endovaginal sonographic images of the first trimester gravid uterus were obtained. COMPARISON: None. FINDINGS: TRANSABDOMINAL SCANS: Retroverted uterus with a single intrauterine gestational sac. Normal maternal kidneys. TRANSVAGINAL SCANS: Yolk sac present. [place]-rump length 5.4 mm, 6 weeks 2 days. Heart rate 119 bpm. PRETTY 03/08/2017. Normal closed cervix measures 3.8 cm. 2.3 cm right ovarian corpus luteum cyst. Left ovary is unremarkable. IMPRESSION: 1. Single live intrauterine 6 weeks 2 days 2. PRETTY 03/08/2017.
== END 2016-07-15 23:00 ==
LOC: US SRH 11:07
DX: Z34.91 Encounter for supervision of normal pregnancy, unspecified, first trimester (principal); Z3A.01 Less than 8 weeks gestation of pregnancy

== ENCOUNTER 2016-10-10 09:58 | Outpatient (CLI) | payer OTHER ==
--- NOTE | 2016-10-10 11:05 | DIAGNOSTIC IMAGING REPORT ---
PROCEDURE: US OB DETAILED ANATOMIC INDICATION: SURVEY TECHNIQUE: Kidd scale, color, and spectral Doppler images of the second trimester gravid uterus were obtained. COMPARISON: 07/15/2016 OB ultra sound FINDINGS: A single living intrauterine is in breech presentation. There is regular cardiac activity at a rate of 136 beats per minute. The placenta is anterior and away from the internal cervical os. The cervix is closed measuring approximately 3.5 cm in length. The amniotic fluid volume is subjectively normal. Biparietal diameter 4.4 cm of 19 weeks and 3 days Head circumference 16.6 cm 19 weeks and 2-day Abdominal circumference 14.9 cm at 20 weeks and 2 days Femur length 2.9 cm of 19 weeks and 0 days Head to abdominal circumference ratio and femur length to abdominal circumference ratios are normal. Estimated weight 304 Composite gestational age 19 weeks and 4 days, PRETTY 03/02/2017 There was visualization of a number of normal structures including the intracranial contents, facial features, nuchal region, spine, four-chamber heart and outflow tracts to the extent that could be visualized, diaphragm, fluid-filled stomach, kidneys, abdomen, urinary bladder, upper and lower extremities, and genitals. A three-vessel umbilical cord, normal and placental cord insertion sites were seen. IMPRESSION: 1. Single living intrauterine with a composite gestational age of 19 weeks and 4 days, PRETTY 03/02/2017 2. Symmetric and normal anatomy.
== END 2016-10-10 23:00 | disposition home or self-care (01) ==
LOC: US SRH 09:58
DX: O32.1XX0 Maternal care for breech presentation, not applicable or unspecified (principal); Z3A.19 19 weeks gestation of pregnancy